=== PATIENT | male | born 1980 | race Caucasian/White ===

== ENCOUNTER 2019-03-17 11:54 | Outpatient (CLI) | payer OTHER ==
--- NOTE | 2019-03-17 12:48 | RAD ---
Exam:3 views right foot HISTORY: Dorsal pain x1 week. COMPARISON: None FINDINGS: Lisfranc alignment is maintained. Joint spaces are preserved. No fracture. There is dorsal soft tissue swelling. IMPRESSION: Dorsal soft tissue swelling. No fracture.
== END 2019-03-17 11:55 | disposition home or self-care (01) ==
LOC: SCSRAD 11:54
PROVIDERS: ATTEND Family Medicine
DX: M79.671 Pain in right foot (principal); M79.89 Other specified soft tissue disorders

== ENCOUNTER 2020-05-25 08:45 | Outpatient (CLI) | payer OTHER ==
[2020-05-25] MEDS ORDERED: Lidocaine 1% PF 10 ML AMP ONE (09:30)
[2020-05-25] MEDS ORDERED: Gadobenate Dimeglumine 529 MG/1 ML (20ML VIAL) ONE (09:30)
[2020-05-25] MEDS ORDERED: Iopamidol 300 61% 50 ML VIAL FS ONE (09:30)
[2020-05-25] MEDS ORDERED: EPINEPHrine 1 MG/ML AMP ONE (09:30)
--- NOTE | 2020-05-25 10:18 | RAD ---
Arthrogram right shoulder HISTORY: Internal derangement. Right shoulder pain. FINDINGS: After explaining the procedure and answering all questions, the anterior aspect of the [facility] t shoulder was prepped and draped in usual sterile fashion. Sterile technique, buffered local anesthesia, fluoroscopic guidance, and an anterior approach were us ed to carefully advance the tip of a 22-gauge spinal needle to the joint capsule at the level of the humeral head. Approximately 8 cc of a liquid mixture containing normal saline, 1% lidocaine, iodinated contrast, an d small amounts of gadolinium and epinephrine were then instilled into the joint capsule under fluoroscopic control. Needle was removed and spot images obtained. Contrast remained within the joint capsule. Patient tolerated the procedure well and was transferred to MRI in good condition for further monitor ing. IMPRESSION : Technically successful right shoulder arthrogram. No evidence of full-thickness rotator cuff tear. MR I is pending.
--- NOTE | 2020-05-25 11:16 | MRI ---
EXAM: MRI Upper Ext Jt Rt W Con DATE: 05/25/2020 12:00 AM INDICATION: 40-year-old male with history of acute right shoulder pain COMPARISON: None. FINDING: Please see the separately dictated right shoulder arthrogram for details concerning the rig ht shoulder injection. Mild motion artifact slightly limits image detail. There is a subchondral fracture involving the distal clavicle. There is edema within the distal clavi lamberto and acromial process. There is a long segment glenohumeral labral tear involving the anterior superior, superior, posterior superior, posterior and inferior glenoid labrum with associated para la bral cyst seen adjacent to the posterior superior margin of the glenoid measuring 3.7 mm. There is a partial-thickness tear extension into the biceps anchor complex. There is no evidence of tear exten omayra into the biceps tendon. The anterior inferior glenohumeral labral ligamentous complex remains intact on the [facility] images. The glenoid articular surface is intact. The humeral head articular surfac e is intact. The rotator cuff is intact. No muscular atrophy is present. No abnormal fluid is seen within the subacromial subdeltoid bursa. Small amount of fluid is present. IMPRESSION: 1. Large adenoid labral tear extending from the anterior superior margin of the glenoid through the s uperior glenoid labrum, posterior glenoid labrum and inferior glenoid labrum. There is partial thickness tear extension into the biceps anchor complex. There is a small associated para labral cyst along the posterior superior margin of the glenoid. 2. The anterior inferior glenohumeral labral ligamentous complex is intact. 3. Subchondral, nondisplaced fracture of the distal clavicle with marrow edema of the distal clavicle and acromial process.
== END 2020-05-25 08:46 | disposition home or self-care (01) ==
LOC: RAD 08:45
PROVIDERS: ATTEND Orthopaedic Surgery
DX: M25.511 Pain in right shoulder (principal); S42.034A Nondisplaced fracture of lateral end of right clavicle, initial encounter for closed fracture; S43.431A Superior glenoid labrum lesion of right shoulder, initial encounter; S46.211A Strain of muscle, fascia and tendon of other parts of biceps, right arm, initial encounter; R60.0 Localized edema
CPT/HCPCS: 23350; A9577; J0171; J2001; Q9967

== ENCOUNTER 2020-05-28 08:22 | Outpatient (CLI) | payer OTHER ==
[2020-05-28 17:37] LABS: #Eosinphils 0.1 10x3/uL (0.0-0.5); #Monocytes 0.7 10x3/uL (0.0-1.1); #Neutrophils 2.9 10x3/uL (1.5-8.4); %Basophils 0.7 % (0.0-2.0); %Eosinophils 2.1 % (0.0-6.0); %Lymphocytes 38.1 % (18.0-47.0); %Monocytes 11.6 % (0.0-10.0); %Neutrophils 47.3 % (40.0-75.0); Hemoglobin 15.2 g/dL (14.0-18.0); Mean Corpuscular HGB CONC 33.8 G/DL (32.0-36.0); Mean Corpuscular Hemoglobin 29.8 PG (27.0-33.0); Mean Corpuscular Volume 88.2 fl (80.0-100.0); Mean Platelet Volume 9.3 fl (7.4-10.4); Platelet Count 249 10x3/uL (130-400); RBC Distribution Width 12.3 % (11.5-14.5); White Blood Cell (WBC) Count 6.1 10x3/uL (4.5-11.0)
[2020-05-29 04:20] LABS: SARS-CoV-2 PCR by NAA Not Detected (NotDetected)
== END 2020-05-28 08:23 | disposition home or self-care (01) ==
LOC: LABBT 08:22
PROVIDERS: ATTEND Orthopaedic Surgery
DX: Z01.812 Encounter for preprocedural laboratory examination (principal); S42.124A Nondisplaced fracture of acromial process, right shoulder, initial encounter for closed fracture; S43.431A Superior glenoid labrum lesion of right shoulder, initial encounter; Z20.822 Contact with and (suspected) exposure to COVID-19
CPT/HCPCS: 85025; 87635; U0003; U0005

== ENCOUNTER 2020-06-03 07:19 | Day surgery (SDC) | payer OTHER ==
[2020-05-31 16:59] VITALS: BMI 26.6
[2020-06-03] MEDS ORDERED: Fentanyl 100 MCG/2 ML VIAL ONE ×2 (08:05→08:32)
[2020-06-03] MEDS ORDERED: Midazolam HCl 2 mg/2 ml Vial ONE (08:05)
[2020-06-03] MEDS ORDERED: EPINEPHrine 1 MG/ML AMP ONE (08:25)
[2020-06-03] MEDS ORDERED: Bupivacaine 0.25% HCL 30 ML VIAL ONE (08:25)
[2020-06-03] MEDS ORDERED: Ropivacaine 0.5% HCl/PF (150 MG/30 ML VIAL) ONE (09:03)
[2020-06-03] MEDS ORDERED: Ketorolac Tromethamine 30 MG/ML VIAL ONE (09:03)
[2020-06-03] MEDS ORDERED: Rocuronium Bromide 10 MG/ML (10ML VIAL) ONE (09:03)
[2020-06-03] MEDS ORDERED: PHENYLEPHRINE-NS 100 MCG/ML 10 ML SYRINGE ONE (09:03)
[2020-06-03] MEDS ORDERED: Dexamethasone 20 MG/5 ML VIAL ONE (09:03)
[2020-06-03] MEDS ORDERED: Glycopyrrolate 0.2 MG/ML 5 ML SYRINGE ONE (09:03)
[2020-06-03] MEDS ORDERED: ePHEDrine 50 MG/ML VIAL ONE (09:03)
[2020-06-03] MEDS ORDERED: Ropivacaine 2% HCl/PF (20 MG/10 ML VIAL) ONE (09:03)
[2020-06-03] MEDS ORDERED: PROPOFOL 200 MG/20 ML VIAL ONE (09:03)
[2020-06-03] MEDS ORDERED: Zolpidem Tartrate 5 MG TAB PO PRN (09:15)
[2020-06-03] MEDS ORDERED: traMADol HCl 50 MG TAB PO PRN ×2 (09:15)
[2020-06-03] MEDS ORDERED: HYDROcodone/Acetaminophen 5/325 mg Tablet PO PRN ×2 (09:15)
[2020-06-03] MEDS ORDERED: Ondansetron PF 4 MG/2 ML Vial IVP PRN (09:15)
[2020-06-03] MEDS ORDERED: Promethazine HCl 25 MG/ML VIAL IM PRN (09:15)
[2020-06-03] MEDS ORDERED: Ropivacaine 0.2% 550 ML 550 ML NERVE BLCK SCH (09:15)
[2020-06-03] MEDS ORDERED: Meperidine HCl/PF 25 MG/ML VIAL ONE (10:42)
== END 2020-06-03 12:40 | disposition home or self-care (01) ==
LOC: SDC 07:19
PROVIDERS: ATTEND Orthopaedic Surgery
PROC: 0LS30ZZ Reposition Right Upper Arm Tendon, Open Approach (ICD-10-PCS; principal; 2020-06-03)
PROC: 3E0T3BZ Introduction of Anesthetic Agent into Peripheral Nerves and Plexi, Percutaneous Approach (ICD-10-PCS; principal; 2020-06-03)
PROC: 0RHJ04Z Insertion of Internal Fixation Device into Right Shoulder Joint, Open Approach (ICD-10-PCS; principal; 2020-06-03)
PROC: 0PB94ZZ Excision of Right Clavicle, Percutaneous Endoscopic Approach (ICD-10-PCS; principal; 2020-06-03)
DX: S43.431A Superior glenoid labrum lesion of right shoulder, initial encounter (principal); S42.034A Nondisplaced fracture of lateral end of right clavicle, initial encounter for closed fracture; G89.18 Other acute postprocedural pain; G40.909 Epilepsy, unspecified, not intractable, without status epilepticus; Z79.899 Other long term (current) drug therapy; Z91.041 Radiographic dye allergy status; X50.0XXA Overexertion from strenuous movement or load, initial encounter; Y93.B9 Activity, other involving muscle strengthening exercises
CPT/HCPCS: A4306; C1713; J0171; J0690; J1100; J1885; J2175; J2250; J2704; J2795; J3010; J3490; S0020